=== PATIENT | male | born 1980 | race Caucasian/White ===

== ENCOUNTER 2016-12-11 13:07 | Emergency (ER) | payer SELFPAY ==
--- NOTE | 2016-12-11 13:20 | ED Physician Documentation ---
Upper Extremity Injury - HISTORIAN Historian: patient - HPI Chief Complaint: Wrist Injury Additional Information: While at work on 12/06/16 patient was putting up a 'shade cloth' that was [id number] in diameter (a big tarp)- something jerked in his wrist and he has been having pain since. Pain worsens when flexing and relieved by ice and ibuprofen. Patient also bought a wrist splint which has been helpful. Wrist is aggravated again when he works. Front/Back of Body, Lg (Stark): 1 - right wrist Onset: days ago (December 06 ) Where: work Severity: mild Duration: intermittent pain Context: other Associated Symptoms: loss of power to arms (weakness to wrist). denies: tingling, numbness distally Modifying Factors: pain on movement Further Comments: yes (improves with ICE and Ibuprofen, pain is worse with lifting/gripping anything heavier then 7 lbs) - ROS CONST: no problems. denies: recent illness, fever, chills CVS/RESP: none. denies: chest pain NEURO: none MS/SKIN/LYMPH: none. denies: neck pain GI/: denies: problems urinating - PAST HX Past History: other (bipolar II) Allergies/Adverse Reactions: Allergies Allergy/AdvReac Type Severity Reaction Status Date / Time No Known Allergies Allergy Verified 12/11/16 13:25 Home Medications: Ambulatory Orders Medication Instructions Recorded Lamotrigine [Lamictal] 150 mg PO DAILY 12/11/16 - SOCIAL HX Smoking History: cigarettes (occassionally when stressed) Alcohol Use: none Drug Use: none - FAMILY HX Family History: cardiac disease (grandmother) - VITAL SIGNS Vital Signs: Vital Signs Temp Pulse Resp BP Pulse Ox 98.2 F 88 16 111/66 98 12/11/16 14:14 12/11/16 14:14 12/11/16 14:14 12/11/16 14:14 12/11/16 14:14 - REVIEWED ASSESSMENTS Nursing Assessment Reviewed: Yes Vitals Reviewed: Yes Progress - EKG/XRAY/CT Xray Comments: xray of right wrist ED Results Lab/Radiology - Orders Orders: ED Orders Category Date Time Status WRIST 3 VIEWS OR MORE [RAD] Stat Exams 12/11/16 Taken Upper Extremity Injury Physic - Physical Exam General Appearance: no acute distress, alert Hand: normal inspection, no evidence of injury, normal ROM Wrist: normal inspection, limited ROM, pain Elbow/Forearm: normal inspection, non-tender, no evidence of injury, normal ROM Shoulder: normal inspection, non-tender, no evidence of injury, normal ROM Neuro/Vascular/Tendon: no vascular compromise, motor nml, sensation nml, ROM limited by pain (right wrist) Skin: warm,dry Head/ENT: nml inspection Neck/Back: nml inspection Resp/CVS: breath sounds nml, heart sounds nml, lungs clear Abdomen: non-tender Discharge Clincal Impression: Right wrist sprain Referrals: Primary Doctor,No [Primary Care Provider] - 2 Days Additional Instructions: Special Instructions: Wear wrist splint for support Maximum 5 pound weight lifting with right hand/wrist Ice, elevate, rest Home Medications: Ambulatory Orders Lamotrigine [Lamictal] 150 mg PO DAILY 12/11/16 Comments: Work comp paperwork completed for patient Condition: Good Disposition: 01 HOME, SELF-CARE Decision to Admit: NO Date of Decison to Admit: 12/11/16 Decision Time: 14:00
[2016-12-11 14:16] VITALS: BP 111/66
--- NOTE | 2016-12-11 15:23 | Diagnostic Imaging Report ---
[facility] [address] [facility] [address] Report Submission Date: Dec 11, 2016 1:56:57 PM CDT Patient Study Name: LISETTE THORPE Date: Dec 11, 2016 1:23:57 PM CDT Modality Type: CR Gender: M Description: UPPER EXTREMITY : 84 Institution: [facility] [place] Physician ARLETH ARGUELLO - ER Right wrist, 3 views History: RIGHT WRIST INJURY ON 11/05/16. PATIENT STATES PAIN ON ULNAR SIDE OF WRIST. DIFFICULTY GRASPING OBJECTS Findings: The osseous structures are intact without acute fracture. The joint space and alignment are normal. There is no soft tissue swelling. Impression: 1. No acute osseous abnormality. Electronically signed on Dec 11, 2016 1:56:57 PM CDT by: Guido ORTIZ
== END 2016-12-11 14:07 | disposition home or self-care (01) ==
LOC: ED 13:07
DX: S63.501A Unspecified sprain of right wrist, initial encounter (principal); X58.XXXA Exposure to other specified factors, initial encounter; Y93.9 Activity, unspecified; Y99.9 Unspecified external cause status
CPT/HCPCS: 73110; 99283

== ENCOUNTER 2016-12-18 11:17 | Outpatient (CLI) | payer OTHER ==
--- NOTE | 2016-12-18 11:50 | Diagnostic Imaging Report ---
SEBASTIAN QUEZADA [facility] [address] [facility] [address] [address] Report Submission Date: Dec 18, 2016 11:42:25 AM CDT Patient Study Name: LISETTE THORPE Date: Dec 18, 2016 11:20:06 AM CDT Modality Type: CR Gender: M Description: UPPER EXTREMITY : 84 Institution: [facility] Physician: SEBASTIAN QUEZADA Examination: Plain film wrist History: Wrist discomfort Comparison exams: 11 December 2016 Findings: 3 views the wrist demonstrate normal cortical margins. No fracture. Small well corticated ossific density superior to the ulna. No dislocation. No soft tissue abnormality. Impression: No acute osseous abnormality. Suspect soft tissue injury, recommend obtaining MRI. Electronically signed on Dec 18, 2016 11:42:25 AM CDT by: Basil ORTIZ
== END 2016-12-18 13:58 ==
LOC: RAD 11:17
PROVIDERS: ATTEND Family Medicine
DX: M25.531 Pain in right wrist (principal)
CPT/HCPCS: 73110

== ENCOUNTER 2017-01-23 22:40 | Emergency (ER) | payer OTHER ==
[2017-01-23 23:05] VITALS: BP 143/56
--- NOTE | 2017-01-23 23:11 | ED Physician Documentation ---
Lower Extremity Injury - HISTORIAN Historian: patient - HPI Stated Complaint: R ANKLE INJU Chief Complaint: Lower Extremity Injury Context: twist Modifying Factors:: pain on movement - ROS CONST: denies: no problems - PAST HX Past History: other (right wrist - tendon injury) Allergies/Adverse Reactions: Allergies Allergy/AdvReac Type Severity Reaction Status Date / Time No Known Allergies Allergy Verified 01/23/17 23:02 Home Medications: Ambulatory Orders Medication Instructions Recorded Lamotrigine [Lamictal] 150 mg PO DAILY 12/11/16 - SOCIAL HX Smoking History: cigarettes - FAMILY HX Family History: denies: none - VITAL SIGNS Vital Signs: Vital Signs Temp Pulse Resp BP Pulse Ox 74 18 143/56 98 01/23/17 22:44 01/23/17 22:44 01/23/17 22:44 01/23/17 22:44 - REVIEWED ASSESSMENTS Nursing Assessment Reviewed: Yes Vitals Reviewed: Yes Progress - Progress Progress: Patient ambulated into Er with no limp. Reviewed xray findings with patient - negative. Patient extremely concerned "something is seriously wrong with my foot". Explained radiologist read xray as negative. Patient with no complaint of heel pain. Patient requested "to see real doctor". Patient able to ambulate out of Er with no grimace, no limp. ED Results Lab/Radiology - Radiology Radiology Impressions: Right foot - three views Clinical history: Twisting injury. Pain. Findings: Examination of the right foot in plantar, lateral and oblique views demonstrates a calcaneal spur at the site of insertion of the plantar aponeurosis. There is no evident fracture and no lytic or blastic lesion. Impression: 1. Calcaneal spur. 2. No fracture. Electronically signed on Jan 23, 2017 11:25:15 PM CDT by: Juan Carlos Vazquez - Orders Orders: ED Orders Category Date Time Status ANKLE 3 VIEWS OR MORE [RAD] Stat Exams 01/23/17 Stop Req FOOT 3 VIEWS OR MORE [RAD] Stat Exams 01/23/17 Ordered Lower Extremities Injury Phy - Physical Exam General Appearance: no acute distress, alert Legs: bilateral: non-tender, normal inspection, normal range of motion, no evidence of injury Knees: bilateral: non-tender, normal inspection, normal range of motion, no evidence of injury Ankle: right: other (right foot with no ecchymosis, no abrasion, no edema. .5 cm nodule palpable over cuboid area. No grimace or c/o pain with palpation), bilateral: non-tender, normal inspection, normal range of motion, no evidence of injury Foot: bilateral foot: non-tender, normal inspection, normal range of motion, no evidence of injury Gait: normal Neuro/Vascular/Tendon: no vascular compromise, motor nml, sensation nml Discharge Clincal Impression: Sprain of left foot Qualifiers: Encounter type: initial encounter Qualified Code(s): S93.602A - Unspecified sprain of left foot, initial encounter Referrals: Primary Doctor,No [Primary Care Provider] - 2 Days Additional Instructions: Rest Ice elevation ibuprofen 800mg three times a day for 3 days Follow up with your primary care if no improvement after 3 days. Condition: Stable Disposition: 01 HOME, SELF-CARE Decision to Admit: NO Decision Time: 23:21
--- NOTE | 2017-01-24 07:03 | Diagnostic Imaging Report ---
GALEN ANGEL ([place]) - ER [facility] [address] [address] Report Submission Date: Jan 23, 2017 11:25:15 PM CDT Patient Study Name: LISETTE THORPE Date: Jan 23, 2017 10:50:45 PM CDT Modality Type: CR Gender: M Description: LOWER EXTREMITY : 84 Institution: [facility] Physician: GALEN ANGEL) - ER Right foot - three views Clinical history: Twisting injury. Pain. Findings: Examination of the right foot in plantar, lateral and oblique views demonstrates a calcaneal spur at the site of insertion of the plantar aponeurosis. There is no evident fracture and no lytic or blastic lesion. Impression: 1. Calcaneal spur. 2. No fracture. Electronically signed on Jan 23, 2017 11:25:15 PM CDT by: Juan Carlos ORTIZ
== END 2017-01-23 23:30 | disposition home or self-care (01) ==
LOC: ED 22:40
DX: S93.602A Unspecified sprain of left foot, initial encounter (principal); X58.XXXA Exposure to other specified factors, initial encounter; Y93.9 Activity, unspecified; Y99.9 Unspecified external cause status
CPT/HCPCS: 73630; 99283